=== PATIENT | male | born 1995 | race Hispanic/Latino ===

== ENCOUNTER 2018-02-11 10:48 | Emergency (ER) | payer OTHER, SELFPAY ==
--- NOTE | 2018-02-11 12:27 | EDPHYS ---
Physician Documentation [facility] Name: George Monreal Age: 22 yrs Sex: Male : 1995 Arrival Date: 02/11/2018 Time: 10:50 Bed 11 Private MD: Jason Bowman B ED Physician Naman Celestin HPI: 02/11 10:55 This 22 yrs old Male presents to ER via Unassigned with complaints of Hand kb Injury. 10:55 The patient or guardian reports injury, pain, tenderness. The complaints affect the kb left middle finger. Context: resulted from a fall, on an outstretched hand. Onset: The symptoms/episode began/occurred this morning. Modifying factors: The symptoms are alleviated by nothing, the symptoms are aggravated by movement. Associated signs and symptoms: The patient has no apparent associated signs or symptoms. Severity of symptoms: At their worst the symptoms were mild, moderate, in the emergency department the symptoms are unchanged. The patient has not experienced similar symptoms in the past. The patient has not recently seen a physician. Historical: - Allergies: 11:02 No Known Allergies; ph - Home Meds: 11:02 None [Active]; ph - PMHx: 11:02 None; ph - PSHx: 11:02 Appendectomy; pilonidal cyst removal; ph - Immunization history:: Adult Immunizations unknown. - Social history:: Smoking status: Patient/guardian denies using tobacco. - Ebola Screening: : No symptoms or risks identified at this time. ROS: 10:55 Constitutional: Negative for fever, chills, and weight loss, Cardiovascular: Negative kb for chest pain, palpitations, and edema, Respiratory: Negative for shortness of breath, cough, wheezing, and pleuritic chest pain, Abdomen/GI: Negative for abdominal pain, nausea, vomiting, diarrhea, and constipation, Back: Negative for injury and pain, Skin: Negative for injury, rash, and discoloration, Neuro: Negative for headache, weakness, numbness, tingling, and seizure. 10:55 MS/extremity: Positive for injury or acute deformity, pain, tenderness, of the left middle finger. Exam: 10:55 Constitutional: This is a well developed, well nourished patient who is awake, alert, kb and in no acute distress. Head/Face: Normocephalic, atraumatic. Chest/axilla: Normal chest wall appearance and motion. Nontender with no deformity. No lesions are appreciated. Cardiovascular: Regular rate and rhythm with a normal S1 and S2. No gallops, murmurs, or rubs. Normal PMI, no JVD. No pulse deficits. Respiratory: Lungs have equal breath sounds bilaterally, clear to auscultation and percussion. No rales, rhonchi or wheezes noted. No increased work of breathing, no retractions or nasal flaring. Abdomen/GI: Soft, non-tender, with normal bowel sounds. No distension or tympany. No guarding or rebound. No evidence of tenderness throughout. Skin: Warm, dry with normal turgor. Normal color with no rashes, no lesions, and no evidence of cellulitis. Neuro: Awake and alert, GCS 15, oriented to person, place, time, and situation. Cranial nerves II-XII grossly intact. Motor strength 5/5 in all extremities. Sensory grossly intact. Cerebellar exam normal. Normal gait. 10:55 Musculoskeletal/extremity: Extremities: grossly normal except: noted in the left middle finger: pain, tenderness, ROM: intact in all extremities, limited active range of motion due to pain, in the left middle finger, Circulation is intact in all extremities. Sensation intact. Vital Signs: 11:01 BP 126 / 72; Pulse 72; Resp 18; Temp 97.7; Pulse Ox 98% on R/A; Weight 84.37 kg; Pain ph 3/10; MDM: 10:53 Patient medically screened. kb 10:56 Data reviewed: vital signs, nurses notes. Data interpreted: Pulse oximetry: on room air kb is 100 %. Interpretation: normal. 12:25 Counseling: I had a detailed discussion with the patient and/or guardian regarding: the kb historical points, exam findings, and any diagnostic results supporting the discharge/admit diagnosis, radiology results, the need for outpatient follow up, a orthopedic surgeon, to return to the emergency department if symptoms worsen or persist or if there are any questions or concerns that arise at home. 02/11 10:54 Order name: Hand Left 3 View XRAY; Complete Time: 12:57 kb 02/11 12:26 Order name: Finger Splint; Complete Time: 13:02 kb Administered Medications: 13:02 Drug: [place] 5 mg-325 mg 1 tabs Route: PO; 13:07 Follow up: Response: No adverse reaction; Medication administered at discharge. ss Disposition: 15:43 Co-signature as Attending Physician, Naman Celestin MD. rn Disposition: 02/11/18 12:26 Discharged to Home. Impression: Nondisplaced fracture of medial phalanx of left middle finger. - Condition is Stable. - Discharge Instructions: Finger Fracture, [id number]. - Prescriptions for Diclofenac Sodium 75 mg Oral Tablet, Delayed Release (E.C.) - take 1 tablet by ORAL route 2 times per day As needed; 30 tablet. - Medication Reconciliation Form, Thank You Letter, Antibiotic Education, Prescription Opioid Use, Work release form form. - Follow up: Private Physician; When: 2 - 3 days; Reason: Recheck today's complaints, Continuance of care, Re-evaluation by your physician. Follow up: Emergency Department; When: As needed; Reason: Worsening of condition. Signatures: Dispatcher [employer] EDFL Leila Desai, TELEPHONE SOLICITOR-C TELEPHONE SOLICITOR-Ckb Naman Celestin MD MD rn Smirch, Shelby, RN RN Yareli Roa RN RN ph Corrections: (The following items were deleted from the chart) 13:08 12:26 02/11/2018 12:26 Discharged to Home. Impression: Nondisplaced fracture of medial ss phalanx of left middle finger. Condition is Stable. Forms are Medication Reconciliation Form, Thank You Letter, Antibiotic Education, Prescription Opioid Use. Follow up: Private Physician; When: 2 - 3 days; Reason: Recheck today's complaints, Continuance of care, Re-evaluation by your physician. Follow up: Emergency Department; When: As needed; Reason: Worsening of condition. kb
--- NOTE | 2018-02-11 12:27 | ER ---
Nurse's Notes [facility] Name: George Monreal Age: 22 yrs Sex: Male : 1995 Arrival Date: 02/11/2018 Time: 10:50 Bed 11 Private MD: Jason Bowman B Diagnosis: Nondisplaced fracture of medial phalanx of left middle finger Presentation: 02/11 10:59 Presenting complaint: Patient states: Fell at work today and caught himself w/ L hand, ph reports pain to L middle finger, slight swelling noted, CMS intact, denies other injury. Transition of care: patient was not received from another setting of care. Onset of symptoms was February 11, 2018. Risk Assessment: Do you want to hurt yourself or someone else? Patient reports no desire to harm self or others. Initial Sepsis Screen: Does the patient meet any 2 criteria? No. Patient's initial sepsis screen is negative. Does the patient have a suspected source of infection? No. Patient's initial sepsis screen is negative. Care prior to arrival: Medication(s) given: reports taking "anti-inflammatory" at 1000. 10:59 Method Of Arrival: Ambulatory ph 10:59 Acuity: ISMAEL 4 ph Historical: - Allergies: 11:02 No Known Allergies; ph - Home Meds: 11:02 None [Active]; ph - PMHx: 11:02 None; ph - PSHx: 11:02 Appendectomy; pilonidal cyst removal; ph - Immunization history:: Adult Immunizations unknown. - Social history:: Smoking status: Patient/guardian denies using tobacco. - Ebola Screening: : No symptoms or risks identified at this time. Screenin:00 Abuse screen: Denies threats or abuse. Denies injuries from another. Nutritional ph screening: On. Tuberculosis screening: No symptoms or risk factors identified. Fall Risk None identified. Assessment: 11:00 General: Appears in no apparent distress. comfortable, Behavior is calm, cooperative, ph appropriate for age. Pain: Complains of pain in left middle finger. Neuro: Level of Consciousness is awake, alert, obeys commands, Oriented to person, place, time, situation. Cardiovascular: Capillary refill < 3 seconds in bilateral fingers Patient's skin is warm and dry. Pulses are palpable in right radial artery and left radial artery. Respiratory: Airway is patent Respiratory effort is even, unlabored. Derm: Skin is intact, is healthy with good turgor, Skin is pink, warm \\T\\ dry. Musculoskeletal: Circulation, motion, and sensation intact. Range of motion: intact in all extremities, Swelling present in left middle finger. 12:02 Reassessment: Patient appears in no apparent distress at this time. Patient and/or ph family updated on plan of care and expected duration. Pain level reassessed. Patient is alert, oriented x 3, equal unlabored respirations, skin warm/dry/pink. Pt resting quietly, awaiting xray results, family at bedside. Vital Signs: 11:01 BP 126 / 72; Pulse 72; Resp 18; Temp 97.7; Pulse Ox 98% on R/A; Weight 84.37 kg; Pain ph 310; ED Course: 10:50 Patient arrived in ED. sb2 10:51 Jason Bowman MD is Private Physician. sb2 10:53 Leila Desai FNP-C is [facility]. kb 10:53 Naman Celestin MD is Attending Physician. kb 11:01 Triage completed. ph 11:01 Arm band placed on Patient placed in an exam room. ph 11:59 Yareli Ramírez, RN is Primary Nurse. ph 12:00 Hand Left 3 View XRAY In Process Unspecified. EDMS 12:00 Patient has correct armband on for positive identification. Placed in gown. Bed in low ph position. Call light in reach. Side rails up X 1. Ice pack to injury. 13:07 No provider procedures requiring assistance completed. Patient did not have IV access ss during this emergency room visit. Aluminum finger splint applied to left middle finger. Administered Medications: 13:02 Drug: [place] 5 mg-325 mg 1 tabs Route: PO; ss 13:07 Follow up: Response: No adverse reaction; Medication administered at discharge. ss Outcome: 12:26 Discharge ordered by . kb 13:07 Discharged to home ambulatory, with family. ss 13:07 Condition: good 13:07 Discharge instructions given to patient, Instructed on discharge instructions, follow up and referral plans. medication usage, Demonstrated understanding of instructions, follow-up care, medications, Prescriptions given X 1. 13:08 Patient left the ED. ss Signatures: Dispatcher [employer] EDMS Leila Desai FNP-C FNP-Walterb Sharmaine Bautista, RN RN ss Yareli Ramírez RN RN ph Rosario, Rita sb2
--- NOTE | 2018-02-11 12:52 | RAD REPORT ---
EXAM DESCRIPTION: RAD - Hand Left 3 View - 02/11/2018 12:06 pm CLINICAL HISTORY: Fall, hand pain third digit COMPARISON: None. FINDINGS: There is fracture along the ventral and ulna side base of the third middle phalanx. The th ird middle phalanx shows partial dislocation towards the ventral margin. Third proximal phalanx shows no fracture. Elsewhere there is no fracture or acute bone or joint finding. Carpal bones are normal. No distal rad ius or ulna finding. No foreign body or other soft tissue abnormality. IMPRESSION: Fracture of third middle phalanx base with partial dorsal dislocation.
[2018-02-11] MEDS ORDERED: HYDROCODONE/APAP 5/325 MG TAB ONE (13:04)
== END 2018-02-11 13:08 | disposition home or self-care (01) ==
LOC: ER 10:48
DX: S62.653A Nondisplaced fracture of middle phalanx of left middle finger, initial encounter for closed fracture (principal); W19.XXXA Unspecified fall, initial encounter; Y93.9 Activity, unspecified; Y92.9 Unspecified place or not applicable
CPT/HCPCS: 99284